=== PATIENT | female | born 1965 | race Caucasian/White ===

== ENCOUNTER → 2016-10-02 | Outpatient (CLI) | payer OTHER | LOC: LAB 13:24 | DX: E89.0 Postprocedural hypothyroidism (principal); R79.89 Other specified abnormal findings of blood chemistry | CPT/HCPCS: 36415; 80069; 81001; 83935; 84300 ==

== ENCOUNTER → 2016-10-04 | Outpatient (CLI) | payer OTHER | LOC: LAB 10:33 | DX: C73 Malignant neoplasm of thyroid gland (principal); E20.9 Hypoparathyroidism, unspecified | CPT/HCPCS: 36415; 80069; 83970; 84432; 84443; 84703; 86800 ==

== ENCOUNTER 2020-04-20 14:23 | Emergency (ER) | payer MEDICARE, OTHER ==
[~2020-04-20 14:23] MED LIST: ANTIVERT 25MG T25 MG PO; IBUPROFEN600 MG PO; NORCO 5-325 TA1 EACH PO; PERCOCET 5/325 T1 EA PO; PHENERGAN 25 MG25 M1 PO; PROAIR HFA8.5 GM INH; ZITHROMAX250 MG PO; ZOFRAN4 MG PO
== END 2020-04-20 16:15 | disposition home or self-care (01) ==
LOC: ER1 14:23
DX: S63.502A Unspecified sprain of left wrist, initial encounter (principal); M25.512 Pain in left shoulder; I10 Essential (primary) hypertension; Z88.0 Allergy status to penicillin; Z88.8 Allergy status to other drugs, medicaments and biological substances; W01.0XXA Fall on same level from slipping, tripping and stumbling without subsequent striking against object, initial encounter
CPT/HCPCS: 29125; 73030; 73110; 99283

== ENCOUNTER → 2020-04-26 | Outpatient (CLI) | payer MEDICARE, OTHER ==
[2020-04-26 13:47] LABS: HEMOGLOBIN 13.4 gm/dl (12.3-15.3); RED BLOOD COUNT 4.45 M/UL (4.00-5.10); WHITE BLOOD COUNT 5.5 K/UL (4.5-11.0)
== END ==
LOC: LAB 13:13
PROVIDERS: Nurse Practitioner
DX: Z51.81 Encounter for therapeutic drug level monitoring (principal); Z79.899 Other long term (current) drug therapy
CPT/HCPCS: 36415; 80053; 85025; 85652

== ENCOUNTER → 2020-05-01 | Outpatient (CLI) | payer MEDICARE, OTHER ==
[2020-05-02 16:11] LABS: MITOCHONDRIAL (M2) ANTIBODY <20.0 Units (0.0-20.0)
[2020-05-02 17:11] LABS: IMMUNOGLOBULIN G, QN, SERUM 891 mg/dL (586-1602)
== END ==
LOC: LAB 14:22
PROVIDERS: Nurse Practitioner
DX: K86.1 Other chronic pancreatitis (principal)
CPT/HCPCS: 36415; 82150; 82784; 82787; 83690

== ENCOUNTER → 2020-08-22 | Outpatient (CLI) | payer MEDICARE, OTHER | LOC: RAD 11:59 | DX: M54.41 Lumbago with sciatica, right side (principal); M47.816 Spondylosis without myelopathy or radiculopathy, lumbar region ==

== ENCOUNTER → 2020-12-05 | Outpatient (CLI) | payer MEDICARE, OTHER ==
[2020-12-05 09:52] LABS: HEMOGLOBIN 13.2 gm/dl (12.3-15.3); RED BLOOD COUNT 4.26 M/UL (4.00-5.10); WHITE BLOOD COUNT 7.3 K/UL (4.5-11.0)
== END ==
LOC: LAB 09:03
PROVIDERS: Nurse Practitioner
DX: Z79.899 Other long term (current) drug therapy (principal)
CPT/HCPCS: 36415; 82565; 84450; 84460; 85025; 85652

== ENCOUNTER → 2021-02-09 | Outpatient (CLI) | payer MEDICARE, OTHER | LOC: MRI 02-01 14:30 | DX: I99.8 Other disorder of circulatory system (principal) | CPT/HCPCS: 36415; 82565 ==